=== PATIENT | female | born 1960 | race Asian ===

== ENCOUNTER 2016-06-15 14:38 | Emergency (ER) | payer OTHER ==
[~2016-06-15] VITALS: Ht 149.9 cm; Wt 89.8 kg
[~2016-06-15 14:38] MED LIST: ALLO100T22 PO; ASPIR-8181 MG OR; COLCRYS 0.6MG0.6 MG PO; CYCL10TA35 PO; DICL1GEL2 TOP; DIGO0.2549 PO; FERROUS SULF325 M1 OR; FURO40TA93 PO; GABA300C2 PO; HYDR-2748 PO; INSU100I2 SC; JANUMET1 TA1 PO; K-TAB20 MEQ PO; LYRICA75 MG OR; MICARDIS H80 MG/25 M PO; NAPROXEN EC500 MG OR; SIMV20TA2 PO; SMZ-TMP DS1 TAB OR; TIZA4TAB5 PO; Z-PAK PO
[2016-06-15 16:08] LABS: PLATELET COUNT 194 K/uL (152-353)
[2016-06-15 16:17] LABS: POTASSIUM 4.7 mmol/L (3.6-5.2)
[2016-06-15 18:59] VITALS: BP 121/98; TEMP 98.3
== END 2016-06-15 19:01 | disposition home or self-care (01) ==
LOC: ED 14:38
DX: R16.0 Hepatomegaly, not elsewhere classified (principal); D25.9 Leiomyoma of uterus, unspecified; E11.9 Type 2 diabetes mellitus without complications; E66.8 Other obesity
CPT/HCPCS: 36415; 80053; 81000; 85027; 99283; Q9963

== ENCOUNTER 2016-12-07 13:42 | Outpatient (CLI) | payer OTHER ==
[2016-12-07 14:42] LABS: PLATELET COUNT 213 K/uL (152-353)
[2016-12-07 14:57] LABS: POTASSIUM 4.7 mmol/L (3.6-5.2)
== END 2016-12-07 19:35 | disposition home or self-care (01) ==
LOC: LAB 13:42
PROVIDERS: Nurse Practitioner Family
DX: Z00.00 Encounter for general adult medical examination without abnormal findings (principal); E11.51 Type 2 diabetes mellitus with diabetic peripheral angiopathy without gangrene; I10 Essential (primary) hypertension; R53.83 Other fatigue; R53.81 Other malaise; E55.9 Vitamin D deficiency, unspecified; Z79.899 Other long term (current) drug therapy; Z51.81 Encounter for therapeutic drug level monitoring
CPT/HCPCS: 80053; 80061; 82306; 82607; 83036; 84436; 84443; 85027

== ENCOUNTER 2017-01-21 13:41 | Inpatient (IN) | payer OTHER ==
[~2017-01-21] VITALS: Ht 149.9 cm; Wt 77.3 kg
[2017-01-21 13:54] VITALS: BP 143/83; TEMP 99.9
[2017-01-21 14:17] LABS: PLATELET COUNT 259 K/uL (152-353)
[2017-01-21 14:30] LABS: POTASSIUM 5.1 mmol/L (3.6-5.2)
[2017-01-21 17:29] VITALS: BP 189/93; TEMP 100.3; Ht 149.9 cm; Wt 77.3 kg
[2017-01-21 20:00] VITALS: BP 139/80; TEMP 99.4
[2017-01-22] VITALS: BP 142/70; TEMP 98.9
[2017-01-22 04:00] VITALS: BP 150/90; TEMP 100.1
[2017-01-22 05:45] LABS: PLATELET COUNT 234 K/uL (152-353)
[2017-01-22 05:57] LABS: POTASSIUM 4.9 mmol/L (3.6-5.2)
[2017-01-22 08:00] VITALS: BP 149/88; TEMP 99.1
[2017-01-22 12:00] VITALS: BP 151/78; TEMP 99.8
[2017-01-22 16:00] VITALS: BP 151/84; TEMP 99.3
[2017-01-22 20:00] VITALS: BP 155/90; TEMP 98.9
[2017-01-23] VITALS: BP 154/82; TEMP 100.4
[2017-01-23 04:00] VITALS: BP 156/79; TEMP 98.9
[2017-01-23 04:41] LABS: PLATELET COUNT 147 K/uL (152-353)
[2017-01-23 08:00] VITALS: BP 143/86; TEMP 99.4
[2017-01-23 12:00] VITALS: BP 137/81; TEMP 99
[2017-01-23 16:00] VITALS: BP 166/93; TEMP 99.3
[2017-01-23 20:00] VITALS: BP 157/91; TEMP 99.6
[2017-01-24] VITALS: BP 173/84; TEMP 98
[2017-01-24 04:00] VITALS: BP 180/75; TEMP 98.6
[2017-01-24 05:27] LABS: PLATELET COUNT 237 K/uL (152-353)
[2017-01-24 08:00] VITALS: BP 188/82; TEMP 97.5
[2017-01-24 12:00] VITALS: BP 154/79; TEMP 97.7
== END 2017-01-24 14:43 | disposition home or self-care (01) | DRG 872 ==
LOC: ED 13:41 → MED/SURG 16:10 → ED 16:10 → MED/SURG 01-24 14:43
PROVIDERS: Family Medicine
DX: A41.59 Other Gram-negative sepsis (principal); N10 Acute pyelonephritis; N30.01 Acute cystitis with hematuria; A04.8 Other specified bacterial intestinal infections; I10 Essential (primary) hypertension; E11.42 Type 2 diabetes mellitus with diabetic polyneuropathy; Z79.4 Long term (current) use of insulin; G47.33 Obstructive sleep apnea (adult) (pediatric); I48.91 Unspecified atrial fibrillation; S80.811A Abrasion, right lower leg, initial encounter; W19.XXXA Unspecified fall, initial encounter; Y93.89 Activity, other specified; Y92.89 Other specified places as the place of occurrence of the external cause; Z91.81 History of falling
CPT/HCPCS: 36415; 80053; 80162; 81000; 82948; 83605; 83735; 85027; 86318; 87040; 87077; 87086; 87088; 87186; 87205; 96365; 96366; 96367; 96375; 99284; J0696; J0744; J1650; J1885; J3475; J3490

== ENCOUNTER 2017-06-22 09:10 | Outpatient (CLI) | payer OTHER | END 2017-06-22 22:00 | disposition home or self-care (01) | LOC: LABW 09:10 | DX: B35.1 Tinea unguium (principal) | CPT/HCPCS: 36415; 84450; 84460 ==

== ENCOUNTER 2017-08-07 08:17 | Observation (INO) | payer OTHER ==
[2017-08-07] VITALS (7 sets, daily range): BP systolic 148–206; BP diastolic 52–117; TEMP 98.1–99; Ht 154.9 cm; Wt 79.9 kg
[~2017-08-07] VITALS: Ht 154.9 cm; Wt 79.9 kg
[2017-08-07] MEDS ORDERED: ALLO100T22 PO (08:33)
[2017-08-07] MEDS ORDERED: CICLOPIROX 8% EX (08:33)
[2017-08-07] MEDS ORDERED: JENTADUETO PO (08:34)
[2017-08-07] MEDS ORDERED: TRAM50TA PO (08:34)
[2017-08-07] MEDS ORDERED: LAMISIL250 MG OR (08:34)
[2017-08-07] MEDS ORDERED: LYRICA100 MG OR (08:35)
[2017-08-07] MEDS ORDERED: GABA400C2 PO (08:38)
[2017-08-07 09:07] LABS: PLATELET COUNT 241 K/uL (152-353)
[2017-08-07 09:27] LABS: POTASSIUM 4.9 mmol/L (3.6-5.2); SODIUM 132 mmol/L (136-145)
[2017-08-07] MEDS ORDERED: METFORMIN ER1000 MG PO (17:53)
[2017-08-08] VITALS: BP 160/78; TEMP 98.8
[2017-08-08 04:00] VITALS: BP 151/71; TEMP 98.1
[2017-08-08 06:39] LABS: PLATELET COUNT 208 K/uL (152-353)
[2017-08-08 08:00] VITALS: BP 161/83; TEMP 98.6
[2017-08-08 12:00] VITALS: BP 182/75; TEMP 98.4
[2017-08-08 16:00] VITALS: BP 169/85; TEMP 98.3
[2017-08-08 20:23] VITALS: BP 177/75; TEMP 98.5
[2017-08-09] VITALS: BP 183/85; TEMP 99.2
[2017-08-09 04:00] VITALS: BP 175/65; TEMP 98.6
[2017-08-09 06:07] LABS: POTASSIUM 5.1 mmol/L (3.6-5.2); SODIUM 136 mmol/L (136-145)
[2017-08-09 06:14] LABS: PLATELET COUNT 213 K/uL (152-353)
[2017-08-09 08:00] VITALS: BP 186/89; TEMP 98.3
[2017-08-09] MEDS ORDERED: LEVAQUIN250 MG OR (11:22)
[2017-08-09 12:00] VITALS: BP 175/86; TEMP 98.3
== END 2017-08-09 12:23 | disposition home or self-care (01) ==
LOC: ED 08:17 → MED/SURG 11:00
PROVIDERS: ADMIT Emergency Medicine
DX: J16.8 Pneumonia due to other specified infectious organisms (principal); I10 Essential (primary) hypertension; E11.69 Type 2 diabetes mellitus with other specified complication; E11.65 Type 2 diabetes mellitus with hyperglycemia; Z79.4 Long term (current) use of insulin; E66.8 Other obesity; D50.8 Other iron deficiency anemias; E87.1 Hypo-osmolality and hyponatremia; N18.3 Chronic kidney disease, stage 3 (moderate); Z79.01 Long term (current) use of anticoagulants; R06.02 Shortness of breath; R10.84 Generalized abdominal pain; R91.8 Other nonspecific abnormal finding of lung field
CPT/HCPCS: 36415; 36600; 80053; 81000; 82150; 82550; 82805; 82948; 83605; 83690; 84484; 85027; 87040; 87804; 87899; 93005; 94640; 94664; 94760; 96365; 96366; 96367; 96372; 96375; 99220; 99284; G0378; J1644; J1815; J1956; J2405

== ENCOUNTER 2017-08-18 15:16 | Outpatient (CLI) | payer OTHER ==
[~2017-08-18 15:16] MED LIST changes: +CICLOPIROX 8% EX; +GABA400C2 PO; +JENTADUETO PO; +LAMISIL250 MG OR; +LEVAQUIN250 MG OR; +LYRICA100 MG OR; +METFORMIN ER1000 MG PO; +TRAM50TA PO
== END 2017-08-18 15:22 | disposition short-term general hospital (02) ==
LOC: AMB 15:16
DX: R07.89 Other chest pain (principal); M54.2 Cervicalgia; V49.88XA Car occupant (driver) (passenger) injured in other specified transport accidents, initial encounter; Y92.488 Other paved roadways as the place of occurrence of the external cause
CPT/HCPCS: A0425; A0427

== ENCOUNTER 2017-08-24 17:12 | Emergency (ER) | payer OTHER ==
[~2017-08-24] VITALS: Ht 134.6 cm; Wt 76.2 kg
[2017-08-24 19:35] VITALS: BP 185/93; TEMP 97.7
== END 2017-08-24 19:38 | disposition home or self-care (01) ==
LOC: ED 17:12
DX: S16.1XXA Strain of muscle, fascia and tendon at neck level, initial encounter (principal); S22.39XA Fracture of one rib, unspecified side, initial encounter for closed fracture
CPT/HCPCS: 96372; 99283; J2360

== ENCOUNTER 2017-11-22 13:11 | Outpatient (CLI) | payer OTHER ==
[2017-11-22 13:57] LABS: PLATELET COUNT 247 K/uL (152-353)
[2017-11-22 14:20] LABS: POTASSIUM 4.9 mmol/L (3.6-5.2)
== END 2017-11-22 19:31 | disposition home or self-care (01) ==
LOC: LAB 13:11
PROVIDERS: Nurse Practitioner Family
DX: I10 Essential (primary) hypertension (principal); E11.65 Type 2 diabetes mellitus with hyperglycemia; Z79.899 Other long term (current) drug therapy; Z51.81 Encounter for therapeutic drug level monitoring; R53.83 Other fatigue; E66.8 Other obesity; R53.81 Other malaise
CPT/HCPCS: 80053; 80061; 83036; 84436; 84443; 85027

== ENCOUNTER 2017-12-12 15:26 | Outpatient (CLI) | payer OTHER | END 2017-12-12 23:18 | disposition home or self-care (01) | LOC: RAD 15:26 | DX: M79.89 Other specified soft tissue disorders (principal) ==

== ENCOUNTER 2017-12-14 11:23 | Outpatient (CLI) | payer OTHER | END 2017-12-14 19:38 | disposition home or self-care (01) | LOC: RAD 11:23 | DX: M1A.0421 Idiopathic chronic gout, left hand, with tophus (tophi) (principal); M1A.09X0 Idiopathic chronic gout, multiple sites, without tophus (tophi); M79.7 Fibromyalgia ==

== ENCOUNTER 2018-02-11 12:00 | Emergency (ER) | payer OTHER ==
[~2018-02-11] VITALS: Ht 152.4 cm; Wt 78.0 kg
[2018-02-11 12:10] VITALS: TEMP 97.6
[2018-02-11 13:16] LABS: PLATELET COUNT 228 K/uL (152-353)
[2018-02-11 13:25] LABS: POTASSIUM 5.1 mmol/L (3.6-5.2)
[2018-02-11 14:43] VITALS: BP 170/86
== END 2018-02-11 14:55 | disposition home or self-care (01) ==
LOC: ED 12:00
DX: M19.011 Primary osteoarthritis, right shoulder (principal)
CPT/HCPCS: 36415; 80053; 84550; 85027; 85651; 86430; 96372; 99283; J1100; J1885

== ENCOUNTER 2018-04-17 15:35 | Emergency (ER) | payer OTHER ==
[~2018-04-17] VITALS: Ht 152.4 cm; Wt 78.0 kg
[2018-04-17 16:29] LABS: PLATELET COUNT 231 K/uL (152-353)
[2018-04-17 16:41] LABS: POTASSIUM 5.3 mmol/L (3.6-5.2)
[2018-04-17 18:51] VITALS: BP 148/80; TEMP 98
== END 2018-04-17 18:53 | disposition home or self-care (01) ==
LOC: ED 15:35
PROVIDERS: Family Medicine
DX: I10 Essential (primary) hypertension (principal)
CPT/HCPCS: 80053; 81000; 85027; 99283

== ENCOUNTER 2018-12-12 23:45 | Inpatient (IN) | payer OTHER ==
[~2018-12-12] VITALS: Ht 154.9 cm; Wt 86.2 kg
[2018-12-13] VITALS (11 sets, daily range): BP systolic 140–250; BP diastolic 64–127; TEMP 97.8–103; Ht 154.9 cm; Wt 86.2 kg
[2018-12-13 00:23] LABS: PLATELET COUNT 174 K/uL (152-353)
[2018-12-13 00:39] LABS: POTASSIUM 4.8 mmol/L (3.6-5.2)
[2018-12-13] MEDS ORDERED: TRAMADOL HYDROC50 MG PO (05:25)
[2018-12-13] MEDS ORDERED: GABA100C2 PO (05:30)
[2018-12-13] MEDS ORDERED: LANTUS100 UNIT/M SC (16:34)
[2018-12-13] MEDS ORDERED: HYDRALAZINE50 MG PO (16:34)
[2018-12-13] MEDS ORDERED: ULORIC40 MG PO (16:35)
[2018-12-14] VITALS: BP 111/50; TEMP 99.8
[2018-12-14 04:00] VITALS: BP 110/56; TEMP 98.5
[2018-12-14 05:19] LABS: PLATELET COUNT 128 K/uL (152-353)
[2018-12-14 05:41] LABS: POTASSIUM 5.8 mmol/L (3.6-5.2)
[2018-12-14 08:06] VITALS: BP 114/51; TEMP 98.1
[2018-12-14 12:23] VITALS: BP 134/70; TEMP 98.1
[2018-12-14 16:04] VITALS: BP 134/84; TEMP 98.1
[2018-12-14 19:56] VITALS: BP 154/77; TEMP 98.5
[2018-12-15 00:13] VITALS: BP 141/68; TEMP 99.6
[2018-12-15 04:00] VITALS: BP 158/70; TEMP 99.1
[2018-12-15 05:35] LABS: PLATELET COUNT 125 K/uL (152-353)
[2018-12-15 08:00] VITALS: BP 180/84; TEMP 97.8
== END 2018-12-15 10:58 | disposition home or self-care (01) | DRG 682 ==
LOC: ED 23:45 → MED/SURG 12-13 02:48
PROVIDERS: Family Medicine; ADMIT Emergency Medicine
DX: N17.8 Other acute kidney failure (principal); K85.80 Other acute pancreatitis without necrosis or infection; N10 Acute pyelonephritis; N18.4 Chronic kidney disease, stage 4 (severe); G47.39 Other sleep apnea; D64.89 Other specified anemias; E78.00 Pure hypercholesterolemia, unspecified; E86.0 Dehydration; E11.42 Type 2 diabetes mellitus with diabetic polyneuropathy; I48.91 Unspecified atrial fibrillation; E87.5 Hyperkalemia; D72.828 Other elevated white blood cell count; D69.6 Thrombocytopenia, unspecified; E11.22 Type 2 diabetes mellitus with diabetic chronic kidney disease; I12.9 Hypertensive chronic kidney disease with stage 1 through stage 4 chronic kidney disease, or unspecified chronic kidney disease
CPT/HCPCS: 80053; 81000; 81002; 82150; 83036; 83690; 85027; 87077; 87086; 87088; 87186; 96372; 96374; 96375; 99220; 99285; J1956; G0378; J0744; J1815; J1885; J2175; J2405; J3490

== ENCOUNTER 2019-03-01 12:00 | Emergency (ER) | payer OTHER ==
[~2019-03-01] VITALS: Ht 154.9 cm; Wt 86.2 kg
[~2019-03-01 12:00] MED LIST changes: +GABA100C2 PO; +HYDRALAZINE50 MG PO; +LANTUS100 UNIT/M SC; +TRAMADOL HYDROC50 MG PO; +ULORIC40 MG PO
[2019-03-01 12:12] VITALS: TEMP 97.7
[2019-03-01 16:06] VITALS: BP 153/72
== END 2019-03-01 16:25 | disposition home or self-care (01) ==
LOC: ED 12:00
DX: S22.31XA Fracture of one rib, right side, initial encounter for closed fracture (principal); W18.39XA Other fall on same level, initial encounter; Y92.89 Other specified places as the place of occurrence of the external cause
CPT/HCPCS: 99283

== ENCOUNTER 2019-04-15 08:44 | Outpatient (CLI) | payer OTHER | END 2019-04-15 19:21 | disposition home or self-care (01) | LOC: US 08:44 | DX: N18.4 Chronic kidney disease, stage 4 (severe) (principal) ==

== ENCOUNTER 2019-04-23 11:50 | Outpatient (CLI) | payer OTHER ==
[2019-04-23 12:36] LABS: POTASSIUM 4.8 mmol/L (3.6-5.2)
[2019-04-23 12:45] LABS: PLATELET COUNT 238 K/uL (152-353)
== END 2019-04-23 19:35 | disposition home or self-care (01) ==
LOC: LABW 11:50
PROVIDERS: Internal Medicine
DX: N18.4 Chronic kidney disease, stage 4 (severe) (principal)
CPT/HCPCS: 36415; 80053; 81000; 82306; 82330; 82570; 83735; 83970; 84100; 84155; 85027; 85651; 86038

== ENCOUNTER 2019-07-05 07:10 | Outpatient (CLI) | payer OTHER ==
[2019-07-05 07:38] LABS: PLATELET COUNT 215 K/uL (152-353)
[2019-07-05 07:59] LABS: POTASSIUM 4.6 mmol/L (3.6-5.2)
== END 2019-07-05 19:21 | disposition home or self-care (01) ==
LOC: LABW 07:10
PROVIDERS: Internal Medicine
DX: N18.4 Chronic kidney disease, stage 4 (severe) (principal)
CPT/HCPCS: 36415; 80053; 81000; 82306; 82330; 82570; 83735; 84100; 84155; 85027

== ENCOUNTER 2019-07-08 17:50 | Emergency (ER) | payer OTHER ==
[~2019-07-08] VITALS: Ht 154.9 cm; Wt 76.7 kg
[2019-07-08 18:52] LABS: PLATELET COUNT 229 K/uL (152-353)
[2019-07-08 19:14] LABS: POTASSIUM 4.1 mmol/L (3.6-5.2); SODIUM 133 mmol/L (136-145)
[2019-07-08 19:31] LABS: PARTIAL THROMBOPLASTIN TIME 24.5 SECONDS (24.5-33.6)
[2019-07-08 20:55] VITALS: BP 178/80; TEMP 97.9
== END 2019-07-08 20:55 | disposition home or self-care (01) ==
LOC: ED 17:50
PROVIDERS: Emergency Medicine
DX: R05 Cough (principal); E11.65 Type 2 diabetes mellitus with hyperglycemia
CPT/HCPCS: 36415; 80053; 82962; 83880; 84484; 85027; 85379; 85610; 85730; 87502; 87651; 93005; 96360; 96375; 99284; J1815

== ENCOUNTER 2019-07-15 08:23 | Outpatient (CLI) | payer OTHER ==
[2019-07-15 09:02] LABS: POTASSIUM 4.7 mmol/L (3.6-5.2)
[2019-07-15 09:49] LABS: PLATELET COUNT 217 K/uL (152-353)
== END 2019-07-15 19:10 | disposition home or self-care (01) ==
LOC: LABW 08:23
PROVIDERS: Internal Medicine
DX: N18.4 Chronic kidney disease, stage 4 (severe) (principal)
CPT/HCPCS: 36415; 80053; 81000; 82306; 82330; 82570; 83735; 84100; 84155; 85027

== ENCOUNTER 2019-07-15 11:40 | Emergency (ER) | payer OTHER ==
[~2019-07-15] VITALS: Ht 154.9 cm; Wt 78.0 kg
[2019-07-15 13:26] LABS: PARTIAL THROMBOPLASTIN TIME 24.7 SECONDS (24.5-33.6)
[2019-07-15 14:30] VITALS: BP 171/81; TEMP 98
== END 2019-07-15 14:30 | disposition short-term general hospital (02) ==
LOC: ED 11:40
PROVIDERS: Emergency Medicine
DX: R06.02 Shortness of breath (principal)
CPT/HCPCS: 85379; 85610; 85730; 96372; 99283; J1650

== ENCOUNTER 2019-07-15 14:53 | Outpatient (CLI) | payer OTHER | END 2019-07-15 16:09 | disposition short-term general hospital (02) | LOC: AMB 14:53 | DX: R06.02 Shortness of breath (principal); R79.89 Other specified abnormal findings of blood chemistry | CPT/HCPCS: A0425; A0427 ==

== ENCOUNTER 2019-07-24 16:13 | Outpatient (CLI) | payer OTHER | END 2019-07-24 20:30 | disposition home or self-care (01) | LOC: RAD 16:13 → EDSTATUS 16:15 → RAD 20:30 | DX: M79.671 Pain in right foot (principal); W19.XXXA Unspecified fall, initial encounter; M79.89 Other specified soft tissue disorders ==

== ENCOUNTER 2019-08-31 13:24 | Outpatient (CLI) | payer OTHER | END 2019-08-31 22:58 | disposition home or self-care (01) | LOC: LAB 13:24 | PROVIDERS: Internal Medicine | DX: N18.4 Chronic kidney disease, stage 4 (severe) (principal) | CPT/HCPCS: 36415; 80053; 81000; 83735; 84100 ==

== ENCOUNTER 2019-11-26 09:01 | Outpatient (CLI) | payer OTHER ==
[2019-11-26 10:26] LABS: POTASSIUM 5.3 mmol/L (3.6-5.2)
== END 2019-11-26 20:05 | disposition home or self-care (01) ==
LOC: LABW 09:01
PROVIDERS: Internal Medicine
DX: E11.22 Type 2 diabetes mellitus with diabetic chronic kidney disease (principal); N18.4 Chronic kidney disease, stage 4 (severe)
CPT/HCPCS: 80053; 81000; 83036; 83735; 84100

== ENCOUNTER 2020-02-16 13:13 | Emergency (ER) | payer OTHER ==
[~2020-02-16] VITALS: Ht 154.9 cm; Wt 78.0 kg
[2020-02-16 13:38] VITALS: BP 193/82; TEMP 98.9
== END 2020-02-16 15:30 | disposition home or self-care (01) ==
LOC: ED 13:13
DX: S29.011A Strain of muscle and tendon of front wall of thorax, initial encounter (principal); W22.8XXA Striking against or struck by other objects, initial encounter; Y92.89 Other specified places as the place of occurrence of the external cause
CPT/HCPCS: 99283

== ENCOUNTER 2020-02-25 07:58 | Outpatient (CLI) | payer OTHER ==
[2020-02-25 08:16] LABS: PLATELET COUNT 182 K/uL (152-353)
[2020-02-25 08:38] LABS: POTASSIUM 3.9 mmol/L (3.6-5.2)
== END 2020-02-25 19:02 | disposition home or self-care (01) ==
LOC: LABW 07:58
PROVIDERS: Nurse Practitioner
DX: N18.4 Chronic kidney disease, stage 4 (severe) (principal); E11.22 Type 2 diabetes mellitus with diabetic chronic kidney disease; R82.90 Unspecified abnormal findings in urine
CPT/HCPCS: 80053; 81000; 82330; 82570; 83036; 83735; 84100; 84155; 85027; 87086; 87088

== ENCOUNTER 2020-04-30 08:51 | Emergency (ER) | payer OTHER ==
[~2020-04-30] VITALS: Ht 154.9 cm; Wt 80.3 kg
[2020-04-30 09:00] VITALS: TEMP 99.1
[2020-04-30] MEDS ORDERED: KP FOLIC ACID1 MG PO (09:11)
[2020-04-30] MEDS ORDERED: HYDR25TA60 PO (09:11)
[2020-04-30] MEDS ORDERED: HYDRALAZINE HY100 MG PO (09:11)
[2020-04-30] MEDS ORDERED: SITA50TA2 PO (09:13)
[2020-04-30 09:31] LABS: PLATELET COUNT 191 K/uL (152-353)
[2020-04-30 09:36] LABS: POTASSIUM 5.7 mmol/L (3.6-5.2)
[2020-04-30 10:10] VITALS: BP 227/109
== END 2020-04-30 10:10 | disposition home or self-care (01) ==
LOC: ED 08:51
PROVIDERS: Emergency Medicine Emergency Medical Services
DX: E87.5 Hyperkalemia (principal); N28.9 Disorder of kidney and ureter, unspecified
CPT/HCPCS: 36415; 80053; 85027; 99282; 99284

== ENCOUNTER 2020-05-16 08:08 | Outpatient (CLI) | payer OTHER ==
[~2020-05-16 08:08] MED LIST changes: +HYDR25TA60 PO; +HYDRALAZINE HY100 MG PO; +KP FOLIC ACID1 MG PO; +SITA50TA2 PO
== END 2020-05-16 18:55 | disposition home or self-care (01) ==
LOC: LABW 08:08
PROVIDERS: ATTEND Internal Medicine
DX: E11.22 Type 2 diabetes mellitus with diabetic chronic kidney disease (principal); N18.4 Chronic kidney disease, stage 4 (severe); D63.8 Anemia in other chronic diseases classified elsewhere
CPT/HCPCS: 36415; 82607; 82728; 82746; 83036; 83550

== ENCOUNTER 2020-05-28 17:11 | Emergency (ER) | payer OTHER ==
[~2020-05-28] VITALS: Ht 154.9 cm; Wt 80.3 kg
[2020-05-28 17:45] LABS: PLATELET COUNT 298 K/uL (152-353)
[2020-05-28 18:24] LABS: POTASSIUM 4.4 mmol/L (3.6-5.2)
[2020-05-28 21:18] VITALS: BP 219/113; TEMP 98.4
== END 2020-05-28 21:18 | disposition home or self-care (01) ==
LOC: ED 17:11
PROVIDERS: Hospitalist
DX: N13.2 Hydronephrosis with renal and ureteral calculous obstruction (principal); Z87.442 Personal history of urinary calculi; N18.9 Chronic kidney disease, unspecified; E11.9 Type 2 diabetes mellitus without complications
CPT/HCPCS: 80053; 80162; 81000; 82150; 83690; 85027; 96361; 96365; 96366; 96375; 99284; J1170; J1815; J1885; J1956; J2405

== ENCOUNTER 2020-08-12 08:14 | Outpatient (CLI) | payer OTHER ==
[2020-08-12 08:36] LABS: PLATELET COUNT 256 K/uL (152-353)
[2020-08-12 08:50] LABS: POTASSIUM 4.4 mmol/L (3.6-5.2)
== END 2020-08-12 21:04 | disposition home or self-care (01) ==
LOC: LABW 08:14
PROVIDERS: ATTEND Nurse Practitioner
DX: E11.22 Type 2 diabetes mellitus with diabetic chronic kidney disease (principal); N18.4 Chronic kidney disease, stage 4 (severe)
CPT/HCPCS: 36415; 80053; 81000; 82330; 82570; 83036; 83735; 84100; 84155; 85027

== ENCOUNTER 2020-10-13 08:20 | Outpatient (CLI) | payer OTHER ==
[2020-10-13 09:22] LABS: PLATELET COUNT 309 K/uL (152-353)
[2020-10-13 10:02] LABS: POTASSIUM 4.9 mmol/L (3.6-5.2)
== END 2020-10-13 19:42 | disposition home or self-care (01) ==
LOC: LABW 08:20
PROVIDERS: ATTEND Internal Medicine
DX: E11.22 Type 2 diabetes mellitus with diabetic chronic kidney disease (principal); N18.4 Chronic kidney disease, stage 4 (severe); R82.998 Other abnormal findings in urine
CPT/HCPCS: 36415; 80053; 81000; 82330; 82570; 83036; 83735; 84100; 84155; 85027; 87086; 87088

== ENCOUNTER 2020-12-07 08:23 | Outpatient (CLI) | payer OTHER ==
[2020-12-15 11:15] LABS: POTASSIUM 5.3 mmol/L (3.6-5.2)
[2020-12-15 11:17] LABS: PLATELET COUNT 298 K/uL (152-353)
== END 2020-12-07 17:00 | disposition home or self-care (01) ==
LOC: LABW 08:23
PROVIDERS: ATTEND Internal Medicine
DX: E11.22 Type 2 diabetes mellitus with diabetic chronic kidney disease (principal); N18.4 Chronic kidney disease, stage 4 (severe)
CPT/HCPCS: 36415; 80053; 81000; 82330; 82570; 83735; 84100; 84155; 85027

== ENCOUNTER 2021-02-02 07:42 | Outpatient (CLI) | payer OTHER ==
[2021-02-02 08:07] LABS: PLATELET COUNT 368 K/uL (152-353)
[2021-02-02 08:20] LABS: POTASSIUM 4.4 mmol/L (3.6-5.2)
== END 2021-02-02 21:41 | disposition home or self-care (01) ==
LOC: LABW 07:42
PROVIDERS: ATTEND Internal Medicine
DX: N18.4 Chronic kidney disease, stage 4 (severe) (principal); E11.22 Type 2 diabetes mellitus with diabetic chronic kidney disease
CPT/HCPCS: 36415; 80053; 81000; 82330; 82570; 83036; 83735; 84100; 84155; 85027

== ENCOUNTER 2021-03-03 08:43 | Outpatient (CLI) | payer OTHER ==
[2021-03-03 09:14] LABS: PLATELET COUNT 326 K/uL (152-353)
== END 2021-03-03 20:06 | disposition home or self-care (01) ==
LOC: LABW 08:43
PROVIDERS: ATTEND Internal Medicine
DX: E11.22 Type 2 diabetes mellitus with diabetic chronic kidney disease (principal); N18.4 Chronic kidney disease, stage 4 (severe); R82.998 Other abnormal findings in urine
CPT/HCPCS: 36415; 80053; 81000; 82330; 82570; 83036; 83735; 84100; 84155; 85027; 87086; 87088

== ENCOUNTER 2021-07-05 08:33 | Emergency (ER) | payer OTHER ==
[~2021-07-05] VITALS: Ht 154.9 cm; Wt 80.3 kg
[2021-07-05 08:39] VITALS: TEMP 97.5
[2021-07-05 09:28] LABS: PLATELET COUNT 341 K/uL (152-353)
[2021-07-05 09:45] LABS: PARTIAL THROMBOPLASTIN TIME 24.5 SECONDS (24.5-33.6)
[2021-07-05 09:55] LABS: POTASSIUM 6.5 mmol/L (3.6-5.2)
[2021-07-05 11:54] VITALS: BP 160/70
== END 2021-07-05 11:55 | disposition home or self-care (01) ==
LOC: ED 08:33
PROVIDERS: Hospitalist
DX: N18.9 Chronic kidney disease, unspecified (principal); E87.5 Hyperkalemia; U07.1 COVID-19; I50.9 Heart failure, unspecified
CPT/HCPCS: 80053; 82550; 83880; 84484; 85027; 85610; 85730; 87635; 93005; 96374; 96375; 99284; J1815; J7060; U0003

== ENCOUNTER 2021-07-05 11:53 | Outpatient (CLI) | payer OTHER | END 2021-07-05 22:08 | disposition home or self-care (01) | LOC: LAB 11:53 | PROVIDERS: ATTEND Internal Medicine | DX: N18.6 End stage renal disease (principal) | CPT/HCPCS: 36415; 80074 ==

== ENCOUNTER 2021-07-28 13:05 | Emergency (ER) | payer OTHER ==
[~2021-07-28] VITALS: Ht 154.9 cm; Wt 80.3 kg
[2021-07-28 13:37] LABS: PLATELET COUNT 323 K/uL (152-353)
[2021-07-28 13:55] LABS: PARTIAL THROMBOPLASTIN TIME 24.5 SECONDS (24.5-33.6)
[2021-07-29 05:26] LABS: POTASSIUM 4.8 mmol/L (3.6-5.2)
[2021-07-29 12:00] VITALS: BP 165/78; TEMP 97.6
== END 2021-07-29 12:00 | disposition short-term general hospital (02) ==
LOC: ED 13:05
PROVIDERS: Hospitalist
DX: N17.8 Other acute kidney failure (principal); S37.092A Other injury of left kidney, initial encounter; S37.091A Other injury of right kidney, initial encounter; N18.6 End stage renal disease; R77.8 Other specified abnormalities of plasma proteins; R60.0 Localized edema; X58.XXXA Exposure to other specified factors, initial encounter; Y92.89 Other specified places as the place of occurrence of the external cause; Z20.822 Contact with and (suspected) exposure to COVID-19
CPT/HCPCS: 36415; 80048; 80053; 82550; 83880; 84484; 85027; 85610; 85730; 87635; 93005; 96374; 96376; 99284; J0360; U0003

== ENCOUNTER 2021-08-12 08:24 | Outpatient (CLI) | payer OTHER ==
[2021-08-12 09:07] LABS: PLATELET COUNT 303 K/uL (152-353)
[2021-08-12 09:59] LABS: POTASSIUM 5.8 mmol/L (3.6-5.2)
== END 2021-08-12 19:07 | disposition home or self-care (01) ==
LOC: LABW 08:24
PROVIDERS: ATTEND Internal Medicine
DX: E11.22 Type 2 diabetes mellitus with diabetic chronic kidney disease (principal); N18.5 Chronic kidney disease, stage 5; D63.8 Anemia in other chronic diseases classified elsewhere; R53.82 Chronic fatigue, unspecified; E53.8 Deficiency of other specified B group vitamins; R82.998 Other abnormal findings in urine
CPT/HCPCS: 36415; 80053; 80074; 81000; 82306; 82330; 82570; 82607; 82728; 83036; 83540; 83550; 83735; 83970; 84100; 84155; 85027; 87086; 87088

== ENCOUNTER 2021-08-30 08:39 | Outpatient (CLI) | payer OTHER ==
[2021-08-30 08:58] LABS: PLATELET COUNT 226 K/uL (152-353)
[2021-08-30 09:25] LABS: POTASSIUM 4.5 mmol/L (3.6-5.2)
== END 2021-08-30 19:03 | disposition home or self-care (01) ==
LOC: LABW 08:39
PROVIDERS: ATTEND Internal Medicine
DX: E11.22 Type 2 diabetes mellitus with diabetic chronic kidney disease (principal); N18.5 Chronic kidney disease, stage 5; D63.8 Anemia in other chronic diseases classified elsewhere
CPT/HCPCS: 36415; 80053; 81000; 82306; 82330; 82570; 82607; 82728; 83036; 83540; 83550; 83735; 83970; 84100; 84155; 85027

== ENCOUNTER 2022-11-15 09:40 | Emergency (ER) | payer OTHER ==
[~2022-11-15] VITALS: Ht 149.9 cm; Wt 72.6 kg
[2022-11-15 09:40] VITALS: TEMP 97.7
[2022-11-15 12:26] VITALS: BP 127/76
== END 2022-11-15 12:26 | disposition designated cancer center or children's hospital (05) ==
LOC: ED 09:40
DX: S13.4XXA Sprain of ligaments of cervical spine, initial encounter (principal); V89.2XXA Person injured in unspecified motor-vehicle accident, traffic, initial encounter
CPT/HCPCS: 96372; 99283; J1100

== ENCOUNTER 2022-11-16 15:41 | Emergency (ER) | payer OTHER ==
[~2022-11-16] VITALS: Ht 149.9 cm; Wt 72.6 kg
[2022-11-16 15:45] VITALS: TEMP 98.4
[2022-11-16 17:58] VITALS: BP 168/71
== END 2022-11-16 17:58 | disposition home or self-care (01) ==
LOC: ED 15:41
DX: S16.1XXA Strain of muscle, fascia and tendon at neck level, initial encounter (principal); V89.2XXD Person injured in unspecified motor-vehicle accident, traffic, subsequent encounter
CPT/HCPCS: 96372; 99283; J1885

== ENCOUNTER 2022-12-03 09:17 | Emergency (ER) | payer OTHER ==
[~2022-12-03] VITALS: Ht 149.9 cm; Wt 60.8 kg
[2022-12-03 09:34] VITALS: TEMP 98
[2022-12-03 10:13] VITALS: BP 163/83
== END 2022-12-03 10:13 | disposition home or self-care (01) ==
LOC: ED 09:17
DX: L72.3 Sebaceous cyst (principal)
CPT/HCPCS: 99281

== ENCOUNTER 2023-01-16 13:30 | Emergency (ER) | payer OTHER ==
[~2023-01-16] VITALS: Ht 149.9 cm; Wt 63.0 kg
[2023-01-16 13:40] VITALS: TEMP 98.4
[2023-01-16 19:35] VITALS: BP 180/70
== END 2023-01-16 19:35 | disposition home or self-care (01) ==
LOC: ED 13:30
DX: M79.632 Pain in left forearm (principal); L03.114 Cellulitis of left upper limb
CPT/HCPCS: 99283

== ENCOUNTER 2023-03-15 12:39 | Outpatient (CLI) | payer OTHER | END 2023-03-15 19:25 | disposition home or self-care (01) | LOC: MRI 12:39 | PROVIDERS: ATTEND Orthopaedic Surgery | DX: M25.511 Pain in right shoulder (principal); M75.41 Impingement syndrome of right shoulder; M19.011 Primary osteoarthritis, right shoulder ==